=== PATIENT | female | born 2000 | race Caucasian/White ===

== ENCOUNTER 2022-09-20 17:57 | Emergency (ER) | payer BC, SELFPAY ==
--- NOTE | ~2022-09-20 | XR_ITS ---
EXAMINATION: XR chest 1V portable Exam Date/Time: 09/20/2022 19:20 CDT HISTORY: short of breath, dizzy w/ EDS history Comparison: None. RESULT: Lines, tubes, and devices: None. Lungs and pleura: Clear. Cardiomediastinal silhouette: Normal. Other: No acute osseous or upper abdominal finding. IMPRESSION: No acute cardiopulmonary process. Reviewed, dictated and finalized at location K.
[2022-09-20 18:22] VITALS: BP 117/73; PULSE 71; RESP 18; TEMP 36.8; O2SAT 99
--- NOTE | 2022-09-20 18:30 | ECG_ITS ---
Measurements Intervals [place] Rate: 64 P: 58 [place]: 153 QRS: 71 QRSD: 82 T: 48 QT: 407 QTc: 421 Interpretive Statements SINUS RHYTHM INCOMPLETE RIGHT BUNDLE BRANCH BLOCK BORDERLINE ECG NO PREVIOUS ECG AVAILABLE FOR COMPARISON Electronically Signed On 09-20-2022 21:44:25 CDT by Darron Bernal D.O.
[2022-09-20 19:02] LABS: Basophils Percent Auto 0.7 % (0.2-1.2); Eosinophils Absolute Auto 0.2 K/mm3 (0-0.3); Eosinophils Percent Auto 5.3 % (0-4.4); Hematocrit 37.4 % (37.0-47.0); Hemoglobin 12.2 g/dL (12.0-15.0); Lymphocytes Absolute Auto 1.49 K/mm3 (0.9-3.2); Lymphocytes Percent Auto 34.6 % (18.3-44.2); Mean Corpuscular HGB Conc 32.6 g/dl (32-36); Mean Corpuscular Hemoglobin 30.3 pg (26-34); Mean Corpuscular Volume 92.8 fl (80-100); Mean Platelet Volume 11.8 fl (7.4-10.4); Monocytes Absolute Auto 0.4 K/mm3 (0.1-0.6); Neutrophils Absolute Auto 2.2 K/mm3 (1.3-6.7); Neutrophils Percent Auto 50.4 % (45.5-73.1); Platelet Count Result 172 k/mm3 (150-375); Red Blood Count 4.03 M/mm3 (4.2-5.4); Red Cell Distribution Width 11.6 % (11.5-14.5); White Blood Count 4.3 K/mm3 (4.5-10.0)
[2022-09-20 19:08] LABS: Alanine Aminotransferase 19 U/L (6-35); Albumin Level 4.5 g/dL (3.5-5.1); Alkaline Phosphatase 45 U/L (38-126); Anion Gap 7 mmol/L (8-16); Aspartate Amino Transferase 23 U/L (14-36); Bilirubin,Total 0.5 mg/dL (0.2-1.3); Blood Urea Nitrogen 11 mg/dL (7-17); Calcium 8.9 mg/dL (8.4-10.2); Carbon Dioxide 29 mmol/L (22-30); Chloride 105 mmol/L (98-107); Estimated Glomerular Filt Rate > 60; Glucose 77 mg/dL (65-110); Potassium 3.8 mmol/L (3.4-5.0); Sodium 141 mmol/L (137-145)
--- NOTE | 2022-09-20 19:09 | ED.DIZZY ---
HPI - Dizziness General Chief Complaint: Dizziness Stated Complaint: dizziness for approx. 1 week Time Seen by Provider: 09/20/22 18:44 Source: patient Mode of arrival: ambulatory Limitations: no limitations History of Present Illness HPI Narrative: This is a 22-year-old female who presents to the ED with chief complaint of dizziness for approximately 1 week. It is intermittent in nature. She reports some episodes of chest tightness and dizziness. She states she has been very stressed out and has an anxiety history. She is just concerned with the dizziness/lightheadedness and her history of Corrine-Danlos syndrome. States she has not gotten her usual 1 year echo in the past couple of years due to COVID. Patient reports recent allergies feels like her ears may be clogged. She states symptoms are specifically worse when she stands up or when she turns in certain positions. Denies fevers, chills, headache, vision change, numbness, weakness. Related Data Allergies Allergy/AdvReac Type Severity Reaction Status Date / Time No Known Allergies Allergy Verified 09/20/22 17:58 Review of Systems Review of Systems: CONSTITUTIONAL: Denies fever, chills, or sweats. EYES: Denies visual changes, redness, or discharge. ENT: Denies rhinorrhea, congestion, sore throat, or otalgia. CARDIOVASCULAR: Denies chest pain, palpitations, or edema. RESPIRATORY: Denies cough or dyspnea. GASTROINTESTINAL: Denies abdominal pain, nausea, vomiting, or diarrhea. GENITOURINARY: Denies dysuria or hematuria. SKIN: Denies rash or itching. MUSCULOSKELETAL: Denies back pain, joint pain, or myalgia. NEUROLOGIC: See HPI PSYCHIATRIC: Denies anxiety or depression. Exam Narrative: GENERAL: Well-appearing, well-nourished, and in no acute distress. HEAD: Normocephalic, atraumatic. EYES: PERRLA and EOMI. ENT: Nares clear, no rhinorrhea or epistaxis. Mucous membranes moist. Oropharynx without tonsillar hypertrophy exudate or other lesions. Left TM effusion is present. NECK: Supple. No adenopathy or masses. CHEST: No respiratory distress. Clear to auscultation. No wheezes rales or rhonchi HEART: Regular rate and rhythm. No murmur heard. Normal peripheral pulses. ABDOMEN: Soft, nontender, nondistended, normal active bowel sounds. MSK: Normal range of motion. No edema. SKIN: Warm, dry, no rash. NEURO: Alert and oriented x3. No focal deficits. Dizziness somewhat worsened when head turned to the left. PSYCH: Normal mood and affect. Course Course Emergency Course: Reevaluation 2103: Patient feels very much improved symptomatically and would like to go home. Vital Signs Vital signs: Vital Signs Temperature 98.3 F 09/20/22 18:22 Pulse Rate 71 09/20/22 18:22 Respiratory Rate 18 09/20/22 18:22 Blood Pressure 117/73 09/20/22 18:22 Pulse Oximetry 99 09/20/22 18:22 Oxygen Delivery Room Air 09/20/22 18:22 Temperature 98.3 F 09/20/22 18: Pulse Rate 64 09/20/22 21:31 Respiratory Rate 15 09/20/22 21:31 Blood Pressure 115/78 09/20/22 21:31 Pulse Oximetry 100 09/20/22 21:31 Oxygen Delivery Room Air 09/20/22 18:22 MDM - Dizziness MDM Narrative Medical decision making narrative: This is a 22-year-old female who presents to the ED with chief complaint of dizziness and lightheadedness for the past several weeks. Seems to be positional in nature. Vitals are stable. Exam does show effusion of the left ear. Lab work is unremarkable. EKG shows sinus rhythm. She was given fluids and meclizine and seem to have improvement with this. We discussed that she needs to follow-up with her family doctor regarding this dizziness. Symptoms are consistent with BPPV versus vertigo with ear effusion. Supportive measures at home discussed. Return precautions given. Patient is understanding and agreeable with the plan for discharge and follow-up with PCP Lab Data 09/20/22 18:47 09/20/22 18:47 Labs: L
[2022-09-20] MEDS: SODIUM CHLORIDE 0.9% IV 1,000 ML 999 ML IV CONT (19:34)
[2022-09-20 19:57] VITALS: BP 119/83; PULSE 70
[2022-09-20 19:58] VITALS: BP 120/89; BP 127/92; PULSE 70; PULSE 72
[2022-09-20] MEDS: MECLIZINE HCL 25 MG TABLET PO (20:00)
[2022-09-20 21:31] VITALS: BP 115/78; PULSE 64; RESP 15; O2SAT 100
== END 2022-09-20 21:34 | disposition home or self-care (01) ==
PROVIDERS: Emergency Medicine; Emergency Provider Physician Assistant
DX: H81.10 Benign paroxysmal vertigo, unspecified ear (principal); Q79.60 Ehlers-Danlos syndrome, unspecified; I45.10 Unspecified right bundle-branch block
CPT/HCPCS: 36415; 71045; 80053; 81025; 85025; 93005; 96360; 99283; A9270; J7030